=== PATIENT | female | born 1960 | race Caucasian/White ===

== ENCOUNTER → 2024-06-22 14:10 | Outpatient (REF) | payer OTHER, SELFPAY | LOC: HWRAD 14:10 | PROVIDERS: ATTENDING PHYSICIAN Nurse Practitioner Adult Health | DX: M85.80 Other specified disorders of bone density and structure, unspecified site (principal); Z12.31 Encounter for screening mammogram for malignant neoplasm of breast | CPT/HCPCS: 77063; 77067; 77080 ==

== ENCOUNTER → 2025-06-09 10:44 | Outpatient (REF) | payer OTHER, SELFPAY | LOC: HWRAD 10:44 | PROVIDERS: ATTENDING PHYSICIAN Nurse Practitioner Adult Health | DX: E78.2 Mixed hyperlipidemia (principal) | CPT/HCPCS: 75571 ==